=== PATIENT | female | born 1985 | race Caucasian/White ===

== ENCOUNTER 2020-07-22 12:57 | Day surgery (SDC) | payer OTHER ==
[~2020-07-22] VITALS: Ht 160 cm; Wt 73.0 kg
--- NOTE | 2020-07-22 16:32 | NUR ---
07/22/20 1632 Ginny Carson 1615-PATIENT ARRIVED TO PACU ON 6L MASK NONAROUSABLE RR EVEN. ORAL AIRWAY IN PLACE. RN DOING JAW THRUST TO MAINTAIN OPEN AIRWAY. PATIENT COUGHING SUCTIONED THIN SECRETIONS. 1617-PATIENTS HOB ELEVATED COUGHING SUCTIONED. ORAL AIRWAY REMOVED. 1630-PATIENT AWAKE ON 6L MASK COUGHING. PATIENT ANXIOUS ASKING "ARE THEY GONNA COME FOR ME" "DON'T TELL THEM WHERE I AM THEY HAVE GUNS" ST HR 130-140. PATIENT ENCOURAGED TO REST AND CLOSE EYES.
--- NOTE | 2020-07-22 17:17 | NUR ---
PATIENT ARRIVED FROM PACU VIA GURNEY. VITALS ARE STABLE, PATIENT IS SIPPING ON WATER, DENIES NEED FOR PAIN MEDICATION OR WANT OF FOOD AT THIS TIME. IV IS SALINE LOCKED.
--- NOTE | 2020-07-22 18:34 | NUR ---
PATIENT SITTING UP IN BED, DENIES NEEDS, ORDERING FOOD FOR DINNER.
--- NOTE | 2020-07-22 20:15 | NUR ---
PT HAS SHOWERED AND IS READY FOR DISCHARGE HOME. VSS. PT IS ALERT AND ORIENTED X3. PT SHOWERED INDEPENDENTLY AND IS STEADY AND STABLE WHILE AMBULATING. PT FINISHED DINNER TRAY WITHOUT NAUSEA OR DYSPHAGIA. PREPARING PT FOR DISCHARGE.
--- NOTE | 2020-07-22 20:59 | NUR ---
REVIEWED DISCHARGE INFO WITH PT. DISCHARGE PACKET PROVIDED TO PT AND PERSONAL ITEMS GATHERED. PT WAS WHEELED TO [facility] IN WHEELCHAIR WHERE STAFF THERE CALLED PT A TAXI. PT TO DISCHARGE HOME IN [place] VIA TAXI. DISCHARGE TIME OFF FLOOR IS 2029.
--- NOTE | 2020-07-23 08:05 | PATH ---
[facility] [address] [facility] [place], [place] [address] Signed ORDERING PHYSICIAN: Brian Yusuf MD PATIENT NAME: DIXON GUY GENDER: F : 1985 SPECIMEN(S): MOLECULAR PATHOLOGY RESULTS: SARS-CoV-2 Not Detected ADDITIONAL NOTES.: The [place] Fusion SARS-CoV-2 Assay is a multiplex real-time PCR (RT-PCR) in vitro diagnostic test intended for the qualitative detection of RNA from SARS-CoV-2 from individuals who meet COVID-19 clinical and/or epidemiological criteria. In general, SARS-CoV-2 RNA can be detected during the acute phase of infection. Positive results indicate the presence of SARS-CoV-2 RNA. Clinical correlation with patient history and other diagnostic information is necessary to determine patient infection status. Positive results do not rule out bacterial infection or co-infection with other viruses. Negative results do not preclude SARS-CoV-2 infection and should not be used as the sole basis for patient management decisions. Negative results must be combined with other clinical observations, patient history, and epidemiological information. The [place] Fusion SARS-CoV-2 Assay is not yet approved or cleared by the [place] FDA. When there are no FDA-approved or cleared tests available, and other criteria are met, FDA can make tests available under an emergency access mechanism called an Emergency Use Authorization (EUA). The EUA for this test is supported by the [place] of Health and Human Service's (HHS's) declaration that circumstances exist to justify the emergency use of in vitro diagnostics for the detection and/or diagnosis of the virus that causes COVID-19. This EUA will remain in effect for the duration of the COVID-19 declaration justifying emergency of IVDs, unless it is terminated or revoked by FDA, after which the test may no longer be used. The [place] Fusion SARS-CoV-2 Assay is for use only under EUA in US laboratories certified under the Clinical Laboratory Improvement Amendments of 1988 (CLIA) to perform high complexity tests. [facility] is certified under CLIA to perform high complexity PATIENT NAME: DIXON GUY PATHOLOGY DATE OF : [birth year] REPORT #: [id number] PHYSICIAN: DAISY PLATT PCP: GARO OVIEDO DO REPORT IS CONFIDENTIAL AND NOT TO BE RELEASED WITHOUT AUTHORIZATION [address] [address] Signed clinical laboratory testing. PERFORMING LABORATORY.: Molecular testing was performed by [facility] [address] [place], [place] [address] [address] ([place]umper: Corey Hampton D.O.; CLIA#: [id number]) Diagnostician: System Interface Pathologist Electronically Signed 07/23/2020 Copies: ~ PATIENT NAME: DIXON GUY PATHOLOGY DATE OF : [birth year] REPORT #: [id number] PHYSICIAN: DAISY PLATT PCP: GARO OVIEDO DO REPORT IS CONFIDENTIAL AND NOT TO BE RELEASED WITHOUT AUTHORIZATION
--- NOTE | 2020-07-23 13:26 | OR ---
[facility] [address] [facility] [place], [place] [address] Signed DATE OF OPERATION: 07/22/2020 SURGEON: Brian Yusuf MD PREOPERATIVE DIAGNOSIS: Retained ingested foreign body in stomach. POSTOPERATIVE DIAGNOSIS: Retained ingested foreign body in stomach. PROCEDURE PERFORMED: Flexible gastroscopy, extraction of foreign body. ANESTHESIA: General endotracheal. ESTIMATED BLOOD LOSS: Scant. COMPLICATIONS: No intraoperative complications or adverse events recognized. INDICATIONS FOR PROCEDURE: This 35-year-old female, currently detained in the local [facility], ingested a writing implement (ballpoint pen) yesterday, then developed upper abdominal pain of such severity that she was brought to the emergency room for evaluation and management. FINDINGS AND DESCRIPTION OF PROCEDURE: The patient was maintained supine while general endotracheal anesthesia was administered, then placed in a left semi-decubitus lateral position. A bite-block was inserted and the flexible endoscope introduced, advanced uneventfully beyond the esophagus into the stomach, insufflating the stomach to more clearly visualized, a foreign body that was curled upon itself. There was no obvious perforation, hematoma, or other serious complications recognized in the gastric mucosa. Assorted graspers and a snare were utilized in an attempt to retrieve the foreign device, but each time the pen would slip out of the grasping instruments. Next, a 0 silk ligature was used to encircle the foreign body and extract it with a grasper without Electronically Signed By: BRIAN YUSUF MD 07/23/20 1326 PATIENT NAME: DIXON GUY RECORD #: [id number] OPERATIVE REPORT DATE OF : [birth year] REPORT #: [id number] PHYSICIAN: BRIAN YUSUF MD PCP: GARO OVIEDO DO REPORT IS CONFIDENTIAL AND NOT TO BE RELEASED WITHOUT AUTHORIZATION [facility] [address] [place] [id number] Signed difficulty or complication. The gastroscope was reinserted to inspect the gastric mucosa, noting no iatrogenic injuries or other complications. The EG inlet was examined by retroflexion of the gastroscope, next redirecting the endoscope distally to view the pylorus and antrum. The stomach was desufflated and the endoscope retracted into the distal esophagus, briefly assessing the EG junction and noting no gross abnormalities. As the gastroscope was retracted along the length of the esophagus, the entire region was inspected and no lesions were identified. Secretions were aspirated from the pharynx and the endoscope removed to conclude the procedure. The patient was then extubated and transported to the PACU in satisfaction condition prior to her release back to [facility]. MD JOSE F Morgan/MUNIRA /[id number] Copies: ~ Electronically Signed By: BRIAN YUUSF MD 07/23/20 1326 PATIENT NAME: DIXON GUY OPERATIVE REPORT DATE OF : [birth year] REPORT #: [id number] PHYSICIAN: BRIAN YUSUF MD PCP: GARO OVIEDO DO REPORT IS CONFIDENTIAL AND NOT TO BE RELEASED WITHOUT AUTHORIZATION
== END 2020-07-23 18:00 | disposition home or self-care (01) ==
LOC: ED 12:57 → DS 15:16
PROVIDERS: ATTEND Surgery
PROC: 0DC68ZZ Extirpation of Matter from Stomach, Via Natural or Artificial Opening Endoscopic (ICD-10-PCS; principal; 2020-07-22 16:00)
DX: T18.2XXA Foreign body in stomach, initial encounter (principal); K21.9 Gastro-esophageal reflux disease without esophagitis; F41.9 Anxiety disorder, unspecified; Z20.828 Contact with and (suspected) exposure to other viral communicable diseases; Z88.0 Allergy status to penicillin
CPT/HCPCS: 74019; 74022; 80053; 83690; 84703; 85025; 96374; 96375; 99284-25; C9803; J0330; J1100; J1170; J1885; J2001; J2250; J2405; J2704; J7030